=== PATIENT | female | born 2000 | race Caucasian/White ===

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

== ENCOUNTER 2021-07-17 18:14 | Emergency (ER) | payer MEDICAID ==
[~2021-07-17] VITALS: Ht 167.6 cm; Wt 66.0 kg
[~2021-07-17 18:14] MED LIST changes: +LEVAQUIN750 MG PO
[2021-07-17] MEDS ORDERED: PRENATA3 PO (18:48)
[2021-07-17 19:32] LABS: URINE BILIRUBIN - DIPSTICK NEGATIVE (NEGATIVE); URINE BLOOD DIPSTICK NEGATIVE (NEGATIVE); URINE COLOR YELLOW; URINE GLUCOSE - DIPSTICK NEGATIVE (NEGATIVE); URINE KETONE NEGATIVE (NEGATIVE); URINE LEUK ESTERASE NEGATIVE (NEGATIVE); URINE PROTEIN - DIPSTICK NEGATIVE (NEG-TRACE); URINE SPECIFIC GRAVITY >=1.030; URINE UROBILINOGEN - DIPSTICK 0.2 E.U./dL (0.2)
[2021-07-17 19:34] LABS: URINE NITRITE - DIPSTICK NEGATIVE (Negative)
[2021-07-17 20:08] VITALS: BP 112/64
== END 2021-07-17 20:20 | disposition home or self-care (01) ==
LOC: ED 18:14
PROVIDERS: Family Medicine
DX: O99.891 Other specified diseases and conditions complicating pregnancy (principal); M54.50 Low back pain, unspecified; Z3A.20 20 weeks gestation of pregnancy

== ENCOUNTER 2021-07-25 19:52 | Emergency (ER) | payer MEDICAID ==
[~2021-07-25 19:52] MED LIST changes: +PRENATA3 PO
== END 2021-07-25 20:10 | disposition left against medical advice (07) | DRG 951 ==
LOC: ED 19:52 → LWOBS 20:10
DX: Z53.21 Procedure and treatment not carried out due to patient leaving prior to being seen by health care provider (principal)

== ENCOUNTER 2024-04-24 17:23 | Emergency (ER) | payer SELFPAY ==
[~2024-04-24] VITALS: Ht 167.6 cm; Wt 56.6 kg
[2024-04-24] VITALS (7 sets, daily range): BP systolic 99–123; BP diastolic 63–82
[~2024-04-24 17:23] MED LIST changes: +DIFLUCAN100 M1 PO; +MIRALAX17 GM PO
[2024-04-24 18:05] LABS: EOS% 3.5 % (0-8); HEMATOCRIT 35.9 % (37.0-47.0); HEMOGLOBIN 11.8 g/dl (12.0-16.0); IMMATURE GRANULOCYTES 0.3 % (0.0-5.0); MEAN CELL VOLUME 86.5 fL CALC (80.0-100.0); MEAN CORPUSCULAR HGB 28.4 pG CALC (26.0-32.0); MEAN CORPUSCULAR HGB CONC 32.9 g/dL CAL (32.0-36.0); MONO% 6.2 % (2-13); NEUT# 4.48 thou/uL (2.00-7.15); RED BLOOD COUNT 4.15 mill/uL (4.20-5.60); RED CELL DISTRI WIDTH 13.6 % (11.5-15.5)
[2024-04-24 18:29] LABS: ALBUMIN 4.3 g/dL (3.2-5.0); BILIRUBIN, TOTAL 0.4 mg/dL (0.02-1.3); CREATININE 0.9 mg/dL (0.5-1.0); POTASSIUM 3.9 mmol/l (3.5-5.1)
== END 2024-04-24 22:18 | disposition home or self-care (01) | DRG 833 ==
LOC: ED 17:23
PROVIDERS: Family Medicine
DX: O20.9 Hemorrhage in early pregnancy, unspecified (principal); Z3A.00 Weeks of gestation of pregnancy not specified

== ENCOUNTER 2024-10-01 19:29 | Emergency (ER) | payer MEDICAID ==
[~2024-10-01] VITALS: Ht 167.6 cm; Wt 61.7 kg
[2024-10-01] VITALS (12 sets, daily range): BP systolic 74–101; BP diastolic 35–61
[2024-10-01] MEDS ORDERED: SODIUM CHLORIDE 0.9% 1,000 ML IV ONE ×4 (20:15→23:21)
[2024-10-01] MEDS ORDERED: ONDANSETRON HCl 4 MG/2 ML SDV IV ONE (20:15)
[2024-10-01 20:58] LABS: BASO% 0.4 % (0-3); EOS% 2.6 % (0-8); HEMATOCRIT 35.7 % (37.0-47.0); HEMOGLOBIN 12.2 g/dl (12.0-16.0); IMMATURE GRANULOCYTES 0.2 % (0.0-5.0); LYMPH% 12.2 % (15-41); MEAN CORPUSCULAR HGB 29.4 pG CALC (26.0-32.0); MEAN CORPUSCULAR HGB CONC 34.2 g/dL CAL (32.0-36.0); MONO% 4.3 % (2-13); NEUT# 6.69 thou/uL (2.00-7.15); NEUT% 80.3 % (42-76); RED BLOOD COUNT 4.15 mill/uL (4.20-5.60); RED CELL DISTRI WIDTH 13.4 % (11.5-15.5)
[2024-10-01 23:25] LABS: ALBUMIN 3.8 g/dL (3.2-5.0); CREATININE 0.5 mg/dL (0.5-1.0); POTASSIUM 3.9 mmol/l (3.5-5.1); TOTAL PROTEIN 6.7 g/dL (6.3-8.2)
[2024-10-01 23:29] LABS: BILIRUBIN, TOTAL 0.6 mg/dL (0.02-1.3)
[2024-10-02] VITALS (14 sets, daily range): BP systolic 77–105; BP diastolic 37–65
[2024-10-02 01:14] LABS: URINE BILIRUBIN - DIPSTICK Negative (NEGATIVE); URINE BLOOD DIPSTICK Negative (NEGATIVE); URINE COLOR Yellow; URINE GLUCOSE - DIPSTICK Negative (NEGATIVE); URINE KETONE 40 mg/dL (NEGATIVE); URINE LEUK ESTERASE Trace (NEGATIVE); URINE NITRITE - DIPSTICK Negative (Negative); URINE PH 5.5 (4.5-8.0); URINE PROTEIN - DIPSTICK Negative (NEG-TRACE); URINE SPECIFIC GRAVITY 1.015
[2024-10-02] MEDS ORDERED: SODIUM CHLORIDE 0.9% 1,000 ML IV ONE (01:35)
[2024-10-02] MEDS ORDERED: MACROBID100 M1 PO (02:25)
[2024-10-02] MEDS ORDERED: ZOFRAN4 MG/TAB PO (02:25)
== END 2024-10-02 03:10 | disposition home or self-care (01) ==
LOC: ED 19:29
PROVIDERS: Family Medicine
DX: O99.611 Diseases of the digestive system complicating pregnancy, first trimester (principal); K52.9 Noninfective gastroenteritis and colitis, unspecified; O26.51 Maternal hypotension syndrome, first trimester; Z3A.13 13 weeks gestation of pregnancy; Z87.891 Personal history of nicotine dependence; Z20.822 Contact with and (suspected) exposure to COVID-19
CPT/HCPCS: J0696; J2405